=== PATIENT | female | born 1985 | race Caucasian/White ===

== ENCOUNTER 2017-02-08 15:24 | Emergency (ER) | payer BC ==
[~2017-02-08 15:24] MED LIST: ADVAIR 250-501 EACH IH; ADVAIR 2501 DISK W/D PO; ALBUTEROL17 GM INH; AMITRIPTYLINE H50 MG PO; AMITRYPTYLINE PO; ATENOLOL50 MG PO; BACTRIM DS TABL1 TA1; BENTYL20 M1 PO; CLEOCIN HCL300 M1 PO; CYMBALTA; CYMBALTA30 MG PO; DICLOFENAC PO; DIFLUCAN PO; FLUCONAZOLE100 M1; HCTZ PO; HYDROCODONE-A1 UDTA3 PO; LASIX20 MG PO; LORTAB 5/500 TA1 TA1 PO; LYBREL PO; NATAZIA 28 TAB1 EACH PO; NORCO 7.5/325 T1 TAB PO; NYSTATIN5 ML PO; PANTOPRAZOLE SO40 MG; PANTOPRAZOLE SO40 MG PO; PHENERGAN PO; PLAQUENIL200 MG PO; PREDNISONE10 MG; PROAIR HFA8.5 GM IH; SYMBICORT; TUSSIONEX PENN473 ML; ULTRAM PO; VICODIN 5/500 T1 TAB PO; XANAX0.5 MG PO; [UNRECOGNIZED DRUG - REMARK]
[2017-02-08] MEDS ORDERED: LYRICA (15:45)
[2017-02-08] MEDS ORDERED: NEXIUM (15:45)
== END 2017-02-08 16:14 | disposition home or self-care (01) ==
LOC: SED 15:24
DX: L02.11 Cutaneous abscess of neck (principal); K21.9 Gastro-esophageal reflux disease without esophagitis; M32.9 Systemic lupus erythematosus, unspecified; Z88.0 Allergy status to penicillin; Z88.7 Allergy status to serum and vaccine; Z79.899 Other long term (current) drug therapy
CPT/HCPCS: 87070; 87077; 87186; 87205; 99283